=== PATIENT | male | born 1975 | race Caucasian/White ===

== ENCOUNTER 2022-01-24 07:29 | Emergency (ER) | payer OTHER, SELFPAY ==
[2022-01-24 07:29] VITALS: BP 129/86; PULSE 83; RESP 16; TEMP 36; O2SAT 98; BMI 25.8
--- NOTE | 2022-01-24 08:03 | EX.ED.UPPERE ---
HPI History of Present Illness HPI Narrative: Patient presents with injury to his left fifth finger that occurred today while at work. Patient states he smashed it between 2 heavy objects. Patient describes the pain as aching. Patient states nothing makes it better nothing makes it worse. Patient denies any paresthesias or weakness. Patient states his last tetanus was between 5 and 10 years ago. Patient denies any other injuries. Chief Complaint: Upper Extremity Injury Informant: patient Occured/Mechanism Mechanism/Context: Yes blunt trauma and Yes work related Onset/Context/Timing Onset: Today Context: Sudden Onset Timing: Continuous Quality of Pain: Aching Location: Left fifth finger Worsened by: Nothing Relieved by: Nothing Associated Symptoms Associated Symptoms: Negative for Parasthesia, Weakness and Loss of Funtion Narrative Tetanus Immunization: 5-10 years PFSH PFS Medical History no medical history no medical history Home Medications cephalexin 500 mg PO Q6 #40 capsule 01/24/22 [Rx Last Taken Unknown] Allergy/AdvReac Type Severity Reaction Status Date / Time No Known Allergies Allergy Verified 01/24/22 07:29 Surgical History no surgical history no surgical history Social History Smoking Status: Current every day smoker tobacco type: cigarettes ROS ROS ED Constitutional Constitutional ED: Denies chills or fever(s) Eyes Eyes: Denies blurry vision or change in vision ENT ENT ED: Denies rhinorrhea or sore throat Cardiovascular Cardiovascular: Denies chest pain or palpitations Respiratory/Chest Respiratory/Chest: Denies cough or dyspnea Gastrointestinal Gastrointestinal: Denies nausea or vomiting Genitourinary Genitourinary ED: Denies dysuria or hematuria Musculoskeletal Musculoskeletal: Denies back pain or neck pain Integumentary Denies abscess or rash Neurologic Neurologic: Denies headache(s) or weakness Allergic/Immunologic Allergic/Immunologic ED: Denies mouth swelling or urticaria EXAM Physical Exam Const Vital Signs: 01/24/22 07:29 Temperature 96.8 F L Temperature Source Temporal Pulse Rate 83 Respiratory Rate 16 Blood Pressure 129/86 H Blood Pressure Mean 100 Pulse Ox 98 Oxygen Delivery Method Room Air Positive well nourished and well developed General Appearance ED: well developed and NAD HEENT Reports moist mucous membranes Neck full ROM and supple Extremity Extremity Narrative: There is tenderness over the distal phalanx of the left fifth finger. There is a 2 cm full-thickness linear laceration over the palmar and ulnar aspects of the distal phalanx of the left fifth finger. There is good range of motion. There is no laxity appreciated. Sensation was intact to light touch in all digits. Strength is 5/5 in flexion and extension of the MP, PIP, and DIP joints. MDM MDM MDM Narrative Medical decision making narrative: X-rays of the left fifth finger were obtained. There are 3 views. On my interpretation, there is no acute fracture. There is no foreign body noted. There is no dislocation. Radiologist also interpreted the x-rays and agrees. The wound was cleaned and irrigated with copious amounts of normal saline. The wound was anesthetized with 1% plain lidocaine via digital block. The wound was closed with 2 simple interrupted #4 -0 nylon sutures under sterile technique. Patient tolerated the procedure well. Bacitracin dressing was applied. Patient was instructed to keep the wound clean and dry. Patient was given a dose of Keflex here. Patient was given a prescription for Keflex. Patient was instructed to follow-up in 7 days for wound recheck and suture removal. Patient understood and was agreeable with the plan. All questions were answered. Procedures Lacerations Left fifth finger: Depth: Sub Q Shape: Linear Prep: Sterile Conditions and Shure-Clens Laceration repair: Digital block, Irrigated, Lidocaine, Skin sutures and Wound explored Irrigated (ml): 60 Number of Sutures/Derick: 2 Suture Information: Vicryl, Simple and 4-0 Discharge Plan Triage Chief Complaint: Upper Extremity Injury ED Provider: Ky Dunn Dx/Rx/DC Orders Clinical Impression: Laceration of left little finger w/o foreign body w/o damage to nail Instructions: ED Laceration, Hand: All Closures Prescriptions: New cephalexin [cephalexin] 500 MG capsule 500 mg PO Q6 Qty: 40 RF: 0 Primary Care Provider: Care Physician,No Primary Referrals: Care Physician,No Primary [Primary Care Provider] - Clinic,NOW [NON-STAFF] - 7 Days for suture removal Disposition Disposition: Home, Self Care
--- NOTE | 2022-01-24 08:07 | RAD_ITS ---
STUDY: X-RAY - LEFT HAND, ATTENTION FIFTH FINGER REASON FOR EXAM: Male, 46 years old. Injury/Pain. TECHNIQUE: 3 view(s) of the finger were obtained. COMPARISON: None. FINDINGS: Normal metacarpal head. Normal metacarpophalangeal joint. Normal proximal phalanx. Normal middle phalanx. Normal distal phalanx. Normal proximal interphalangeal joint. Normal distal interphalangeal joint. Soft tissue swelling. RAD/Finger(s) Min 2 Views IMPRESSION: Soft tissue swelling. Electronically Signed: Michael Tolliver MD at 8:41 EST ,
[2022-01-24] MEDS: Diphth,Pertuss(Acell),Tet Vac 0.5 ML Vial IM (08:22)
== END 2022-01-24 10:14 | disposition home or self-care (01) ==
PROVIDERS: Emergency Provider Emergency Medicine; Visit Provider Emergency Medicine
DX: S61.217A Laceration without foreign body of left little finger without damage to nail, initial encounter (principal); Y99.0 Civilian activity done for income or pay; F17.210 Nicotine dependence, cigarettes, uncomplicated; W23.0XXA Caught, crushed, jammed, or pinched between moving objects, initial encounter; Z23 Encounter for immunization
CPT/HCPCS: 12001; 73140; 90471; 90715; 99283

== ENCOUNTER → 2022-09-29 | Outpatient (CLI) | payer BC, SELFPAY ==
--- NOTE | 2022-09-29 12:10 | RAD_ITS ---
STUDY: X-RAY - CERVICAL SPINE REASON FOR EXAM: Male, 47 years old. Cervical neck pain. Radiculopathy. TECHNIQUE: 3 view(s) of the cervical spine were obtained. COMPARISON: None FINDINGS: Normal anterior atlantoaxial articulation. Normal odontoid process. Mild exaggeration of the cervical lordosis. Normal vertebral bodies and endplates. Minimal disc space narrowing. There is no evidence of acute fracture or loss of vertebral axial height. There is maintenance of normal alignment. The soft tissue structures are unremarkable. RAD/Cerv Spine 2 or 3 Views IMPRESSION: Exaggerated cervical lordosis with mild degenerative change. Electronically Signed: Giovani Ortega DO at 17:14 EDT ,
--- NOTE | 2022-09-29 12:10 | RAD_ITS ---
STUDY: X-RAY - LUMBAR SPINE REASON FOR EXAM: Male, 47 years old. Lumbar radiculopathy. Pain extending down the left leg. TECHNIQUE: 3 view(s) of the lumbar spine were obtained. COMPARISON: None FINDINGS: Normal lumbar lordosis. There is no substantial scoliosis. There is a normal alignment of the vertebrae. Minimal endplate spondylosis and disc space narrowing at T12-L1. The remainder of the disc heights appear preserved. There is no evidence of acute fracture or loss of vertebral axial height. The soft tissue structures are unremarkable. RAD/Lumbar Spine 2 or 3 Views IMPRESSION: Disc degeneration at T12-L1. Electronically Signed: Giovani Ortega DO at 17:30 EDT ,
== END | disposition home or self-care (01) ==
LOC: RAD 12:10
PROVIDERS: Referring Provider Internal Medicine; Visit Provider Internal Medicine
DX: M54.16 Radiculopathy, lumbar region (principal); M54.50 Low back pain, unspecified
CPT/HCPCS: 72040; 72100

== ENCOUNTER → 2022-09-30 | Outpatient (CLI) | payer BC, SELFPAY ==
[2022-09-30 09:37] LABS: Absolute Lymphocyte Count 3.32 X10^3/uL (0.83-4.51); Absolute Neutrophil Count 4.9 X10^3/uL (2.0-7.7); Basophil# 0.08 X10^3/uL; Basophil% 0.9 % (0-1); Eosinophil# 0.24 X10^3/uL; Eosinophils% 2.6 % (0-5); Hematocrit 46.8 % (40-54); Hemoglobin 16.5 g/dL (13.0-16.5); Lymphocyte # 3.32 X10^3/ul (0.83-4.51); Lymphocyte % 35.9 % (19-41); Mean Corp Hgb Conc 35.3 g/dL (32-36); Mean Corpuscular Hgb 33.3 pg (27.0-32.0); Mean Corpuscular Volume 94.5 fL (80-94); Mean Platelet Vol. 11.6 fl (6.2-12.0); Monocyte# 0.69 X10^3/uL; Monocyte% 7.5 % (0-10); NRBC Flagged by Analyzer 0 % (0-5); Neutrophil # 4.89 X10^3/uL (2.7-7.7); Neutrophil % 52.7 % (47-70); Platelet Count 196 K/mm3 (150-450); Red Blood Count 4.95 M/mm3 (4.6-6.2); White Blood Count 9.3 K/mm3 (4.4-11.0)
[2022-09-30 10:18] LABS: Vitamin D,25 Hydroxy 27.6 ng/mL
[2022-09-30 10:23] LABS: Hemoglobin A1c 5.6 % (3.8-5.6)
[2022-09-30 10:35] LABS: ALB/GLOB Ratio 1.1 RATIO (0.9-2.4); AST(SGOT) 24 U/L (15-37); Alanine Aminotransfer ALT/SGPT 42 U/L (16-61); Albumin, Serum 3.9 g/dL (3.2-5.0); Alkaline Phosphatase 119 U/L (45-117); Anion Gap 10 (5-15); BUN 18 mg/dL (7-18); BUN/Creat Ratio 19.1 RATIO (10-20); Calcium,Total 9.3 mg/dL (8.5-10.1); Chloride 108 mmol/L (98-107); Cholesterol 174 mg/dL (200); Creatinine, Serum 0.94 mg/dL (0.70-1.30); EST Glomerular Filtration Rate 90 mL/min (>60); Est Glom Filt Rate - Afr Amer 109 mL/min (>60); Globulin 3.5 g/dL (2.2-4.2); Glucose 93 mg/dL (74-106); High Density Lipoprotein 39 mg/dL; PSA,Total - Annual Screen 1.59 ng/mL (0.00-4.00); Potassium 3.9 mmol/L (3.5-5.1); Protein, Total 7.4 g/dL (6.4-8.2); Sodium Level 142 mmol/L (136-145); Triglycerides 104 mg/dL; Very Low Density Lipoprotein 21 mg/dL (5-40)
== END | disposition home or self-care (01) ==
LOC: LAB 08:57
PROVIDERS: PCP Internal Medicine; Referring Provider Internal Medicine; Visit Provider Internal Medicine
DX: Z00.00 Encounter for general adult medical examination without abnormal findings (principal); Z13.220 Encounter for screening for lipoid disorders; Z13.1 Encounter for screening for diabetes mellitus; Z12.5 Encounter for screening for malignant neoplasm of prostate
CPT/HCPCS: 36415; 80053; 80061; 82306; 83036; 84153; 85025; G0103

== ENCOUNTER 2022-11-27 16:04 | Emergency (ER) | payer BC, SELFPAY ==
[2022-11-27 16:05] VITALS: BP 138/91; PULSE 93; RESP 14; TEMP 36.1; O2SAT 97; BMI 30.1
--- NOTE | 2022-11-27 18:40 | RAD_ITS ---
INDICATION: Cough EXAMINATION/TECHNIQUE: X-RAY - XR Chest 2 Views COMPARISON: None. FINDINGS: LINES/DEVICES: None. LUNGS: No consolidation, edema or effusion. No pneumothorax. MEDIASTINUM AND CARDIOVASCULAR STRUCTURES: Cardiac silhouette not enlarged. Central airways and mediastinal contour are unremarkable. BONES AND SOFT TISSUES: Unremarkable. RAD/Chest PA and Lateral IMPRESSION: No radiographic evidence of acute cardiopulmonary disease. Electronically Signed: Sarabjit Owens MD at 20:08 EST ,
--- NOTE | 2022-11-27 18:40 | EKG12_ITS ---
Test Reason : CP Blood Pressure : / mmHG Vent. Rate : 084 BPM Atrial Rate : 084 BPM P-R Int : 142 ms QRS Dur : 104 ms QT Int : 356 ms P-R-T Axes : 074 -44 011 degrees QTc Int : 420 ms Normal sinus rhythm Left axis deviation Abnormal ECG Confirmed by SÁNCHEZ ROSARIO, DAVID ([id number]), manager editorial SANDOR VILLARREAL ([id number]) on 11/29/2022 1:20:21 PM Referred By: OSITO Confirmed By:DAVID POZO MD
--- NOTE | 2022-11-27 18:44 | EDS_ITS ---
HPI History of Present Illness Chief Complaint: Chest Pain Informant: patient Onset/Context/Timing Onset: Weeks (1) Context: Gradual Onset Timing: Continuous Quality: Sharp Location: Substernal, lower chest, and back Worsened by: Nothing Relieved by: Nothing Narrative Narrative: Patient presents with cough and congestion that has been getting worse over the past week. Patient states it is gradually gotten worse. Thank you patient states that sometimes he gets lightheaded after coughing. Patient states he feels short of breath. Patient states he has not been able to produce any sputum with the cough. Patient states that he has pain over the substernal area and bilateral lower chest. Patient states the pain radiates into his back. Patient states the pain is sharp with coughing. Patient states the pain is constant. Patient states he thinks he either has bronchitis or pneumonia. [facility] Medical History Acute arthritis Lung abnormality Home Medications meloxicam 15 mg tablet 15 mg PO DAILY PRN Neck/back pain #30 tabs 10/10/22 [Rx Last Taken Unknown] Allergy/AdvReac Type Severity Reaction Status Date / Time No Known Allergies Allergy Verified 11/27/22 16:05 Family History Mother Asthma Arthritis Bleeding disorder blood clots Diabetes Kidney disease CVA (cerebral vascular accident) Father Arthritis Cancer Kidney disease Grandmother Myocardial infarction Other Severe allergy Social History adopted: No household members: spouse housing: house current occupational status: employed 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 Smoking Status: Current every day smoker tobacco type: cigarettes alcohol intake: current details: couple of beers every once in awhile substance use type: does not use what type of physical activity do you participate in: none seatbelt use: always ROS ROS ED Constitutional Constitutional ED: Denies chills or fever(s) Eyes Eyes: Denies blurry vision or change in vision ENT ENT ED: Denies rhinorrhea or sore throat Cardiovascular Cardiovascular: Reports chest pain; Denies palpitations Respiratory/Chest Respiratory/Chest: Reports cough and dyspnea Gastrointestinal Gastrointestinal: Denies abdominal pain, nausea or vomiting Genitourinary Genitourinary ED: Denies dysuria or hematuria Musculoskeletal Musculoskeletal: Reports back pain; Denies neck pain Integumentary Denies abscess or rash Neurologic Neurologic: Denies headache(s) or weakness Allergic/Immunologic Allergic/Immunologic ED: Denies mouth swelling or urticaria EXAM Physical Exam Const Vital Signs: 11/27/22 16:05 11/27/22 18:55 Temperature 97 F L Temperature Source Temporal Pulse Rate 93 88 Respiratory Rate 14 12 Respiratory Pattern Normal Blood Pressure 138/91 H Blood Pressure Mean 106 Pulse Ox 97 Oxygen Delivery Method Room Air Positive well nourished and well developed General Appearance ED: well developed HEENT normocephalic and atraumatic Eyes PERRL and EOMs intact bilaterally Neck supple and no JVD Chest Wall palpation of chest normal Resp normal respiratory effort and clear to auscultation bilaterally Effort and Inspection: Negative for respiratory distress Cardio regular rate and regular rhythm GI normal to inspection, nondistended, normoactive bowel sounds, soft to palpation, non-tender and non-distended Extremity normal to inspection General Extremety ED: Negative for edema or tenderness General Extremity: Negative for edema Neuro oriented x3, CN's II-XII intact bilaterally and no sensory deficits noted Sensorium / Orientation: awake and alert Motor Exam: strength 5/5 throughout Psych mental status grossly normal MDM MDM MDM Narrative Medical decision making narrative: Patient was given a DuoNeb aerosol here. EKG was obtained. On my interpretation, it shows normal sinus rhythm with a rate of 84. TN interval, QRS interval, and QTc intervals are within normal limits. There is left axis deviation at -44. There are no acute ST or T wave changes noted. CBC shows a mild leukocytosis of 15.9. Comprehensive metabolic profile was within normal limits. High-sensitivity troponin was normal. PA and lateral chest x-ray was obtained. There are 2 views. On my interpretation, lung rodriguez are clear. There is normal cardiac silhouette. Bony thorax is normal. There is no acute process noted. Radiologist also interpreted the x-ray and agrees. COVID-19 rapid antigen was obtained and was negative. Influenza A and influenza B rapid antigens were obtained and were negative. Patient was advised of his findings. Patient was advised that this is most likely a viral bronchitis. Patient was instructed to follow-up with his primary care physician in 5 to 7 days. Patient understood and was agreeable with the plan. All questions were answered. Lab Data Attestation: I reviewed the patient's lab results. Labs: Laboratory Results - last 24 hr 11/27/22 11/27/22 18:43 18:43 WBC 15.9 H RBC 5.06 Hgb 17.0 H Hct 47.1 MCV 93.1 MCH 33.6 H MCHC 36.1 H RDW Std Deviation 40.1 RDW Coeff of Concepcion 11.9 Plt Count 247 MPV 10.8 Immature Gran % (Auto) 0.600 Neut % (Auto) 64.4 Lymph % (Auto) 25.7 [place] % (Auto) 6.1 Eos % (Auto) 2.6 Baso % (Auto) 0.6 Absolute Neuts (auto) 10.2 H Absolute Lymphs (auto) 4.08 Nucleated RBC % 0 Sodium 139 Potassium 3.7 Chloride 108 H Carbon Dioxide 25.0 Anion Gap 6 BUN 15 Creatinine 0.97 Estim Creat Clear Calc 95.12 Est GFR (MDRD) Af Amer 105 Est GFR (MDRD) Non-Af 87 BUN/Creatinine Ratio 15.4 Glucose 106 Calcium 8.7 Total Bilirubin 0.40 AST 54 H ALT 81 H Alkaline Phosphatase 116 Troponin I High Sens 5 Total Protein 7.4 Albumin 3.7 Globulin 3.7 Albumin/Globulin Ratio 1.0 Radiography Chest X-Ray - ED: 2 View, Read by ED Physician, Read by Radiologist and No Acute Disease Diagnostic Testing: Clinical Impression(s) from Imaging Studies Chest X-Ray 11/27/22 18:40 IMPRESSION: No radiographic evidence of acute cardiopulmonary disease. Electronically Signed: Sarabjit Owens MD at 20:08 EST Reading Location ID and State: [facility] / [place] Tel , Service support , EKG Initial EKG: Attestation: I personally reviewed and interpreted this EKG as follows: Interpretation: Sinus Rhythm (84) and No Acute Injury Pattern Prior EKG tracings: not available for review Prior: No Prior Discharge Plan Triage Chief Complaint: Chest Pain ED Provider: Ky Dunn Dx/Rx/DC Orders Clinical Impression: Acute viral bronchitis, Tobacco use disorder Instructions: ED Bronchitis, No Antibiotic (Adult) Prescriptions: No Action meloxicam 15 mg tablet 15 mg PO DAILY PRN (Reason: Neck/back pain) Qty: 30 2RF Primary Care Provider: Alaina Joy Referrals: Alaina Joy MD [Primary Care Provider] - 5-7 Days Disposition Disposition: Home, Self Care
[2022-11-27] MEDS: Ipratropium/Albuterol Sulfate 3 ML AMPUL.NEB INHALATION (18:54)
[2022-11-27 18:55] VITALS: PULSE 88; RESP 12
[2022-11-27 18:59] LABS: Absolute Lymphocyte Count 4.08 X10^3/uL (0.83-4.51); Absolute Neutrophil Count 10.2 X10^3/uL (2.0-7.7); Basophil# 0.09 X10^3/uL; Basophil% 0.6 % (0-1); Eosinophil# 0.42 X10^3/uL; Eosinophils% 2.6 % (0-5); Hematocrit 47.1 % (40-54); Lymphocyte # 4.08 X10^3/ul (0.83-4.51); Lymphocyte % 25.7 % (19-41); Mean Corp Hgb Conc 36.1 g/dL (32-36); Mean Corpuscular Hgb 33.6 pg (27.0-32.0); Mean Corpuscular Volume 93.1 fL (80-94); Mean Platelet Vol. 10.8 fl (6.2-12.0); Monocyte# 0.97 X10^3/uL; Monocyte% 6.1 % (0-10); NRBC Flagged by Analyzer 0 % (0-5); Neutrophil # 10.22 X10^3/uL (2.7-7.7); Neutrophil % 64.4 % (47-70); Platelet Count 247 K/mm3 (150-450); RBC Distribution Width CV 11.9 % (11.6-14.6); RBC Distribution Width SD 40.1 fl (35.1-43.9); Red Blood Count 5.06 M/mm3 (4.6-6.2); White Blood Count 15.9 K/mm3 (4.4-11.0)
[2022-11-27 19:20] LABS: AST(SGOT) 54 U/L (15-37); Alanine Aminotransfer ALT/SGPT 81 U/L (16-61); Albumin, Serum 3.7 g/dL (3.2-5.0); Alkaline Phosphatase 116 U/L (45-117); Anion Gap 6 (5-15); BUN 15 mg/dL (7-18); BUN/Creat Ratio 15.4 RATIO (10-20); Calcium,Total 8.7 mg/dL (8.5-10.1); Chloride 108 mmol/L (98-107); Creatinine, Serum 0.97 mg/dL (0.70-1.30); EST Glomerular Filtration Rate 87 mL/min (>60); Est Glom Filt Rate - Afr Amer 105 mL/min (>60); Estimated Creatinine Clearance 95.12 ml/min; Globulin 3.7 g/dL (2.2-4.2); Glucose 106 mg/dL (74-106); Potassium 3.7 mmol/L (3.5-5.1); Protein, Total 7.4 g/dL (6.4-8.2); Sodium Level 139 mmol/L (136-145); Troponin-I HS 5 pg/mL (3.0-78.0)
== END 2022-11-27 21:17 | disposition home or self-care (01) ==
PROVIDERS: Emergency Provider Emergency Medicine; PCP Internal Medicine; Visit Provider Emergency Medicine
DX: J20.9 Acute bronchitis, unspecified (principal); F17.210 Nicotine dependence, cigarettes, uncomplicated
CPT/HCPCS: 71046; 80053; 84484; 85025; 87428; 93005; 94640; 99284; A4216

== ENCOUNTER 2022-11-30 10:04 | Emergency (ER) | payer BC, SELFPAY ==
[2022-11-30 10:17] VITALS: BP 112/74; PULSE 110; RESP 26; TEMP 37.2; O2SAT 95; BMI 29.4
--- NOTE | 2022-11-30 10:21 | EKG12_ITS ---
Test Reason : FEVER Blood Pressure : / mmHG Vent. Rate : 107 BPM Atrial Rate : 107 BPM P-R Int : 126 ms QRS Dur : 098 ms QT Int : 336 ms P-R-T Axes : 064 -20 028 degrees QTc Int : 448 ms Poor data quality, interpretation may be adversely affected Sinus tachycardia Otherwise normal ECG Confirmed by STEVE ROSARIO, BRENNA ([id number]), design editor SANDOR VILLARREAL ([id number]) on 12/02/2022 6:28:23 AM Referred By: Confirmed By:PRAVEEN WILSON MD
[2022-11-30 12:04] VITALS: BP 122/91; PULSE 98; RESP 19; TEMP 37.3; O2SAT 96
--- NOTE | 2022-11-30 12:35 | EX.ED.VIS.UR ---
HPI HPI - URI History of Present Illness Chief Complaint: Shortness of Breath Detail of Chief Complaint: URI symptoms for the last 2 weeks. Informant: patient Onset/Context/Timing Onset: Weeks Context: Gradual Onset Timing: Continuous Current Severity: Mild Maximum Severity: Mild Associated Symptoms Associated Symptoms: Positive for Productive Cough Narrative Narrative: 47-year-old male history of diabetes. States annually he gets a bronchitis. Was seen here on November 27 had a work-up which showed an elevated white count but negative chest x-ray negative COVID and negative influenza. He was treated as a viral syndrome. States his cough is productive of green to purulent sputum. He went to the urgent care today they referred him back to the emergency department. Prior similar symptoms: Yes Recent Illness/Hospitalization: No ROS ROS ED ROS Narrative Productive cough. Review of Systems ROS Unobtainable: Denies due to encephalopathy Constitutional Constitutional ED: Reports chills Eyes Eyes: Denies blurry vision ENT ENT ED: Denies ear pain Cardiovascular Cardiovascular: Denies chest pain Respiratory/Chest Respiratory/Chest: Reports cough Gastrointestinal Gastrointestinal: Denies abdominal pain Genitourinary Genitourinary ED: Denies dysuria or hematuria Musculoskeletal Musculoskeletal: Denies arthralgias Integumentary Denies abscess Neurologic Neurologic: Denies headache(s) Psychiatric Psychiatric: Denies anxiety Endocrine Endocrinology: Denies cold intolerance Hematologic/Lymphatic Hematologic/Lymphatic: Denies easy bleeding Allergic/Immunologic Allergic/Immunologic ED: Denies mouth swelling or tongue swelling PFSH [facility] Medical History Acute arthritis Lung abnormality Home Medications meloxicam 15 mg tablet 15 mg PO DAILY PRN Neck/back pain #30 tabs 10/10/22 [Rx Last Taken Unknown] azithromycin 250 mg tablet (Zithromax) 250 mg PO DAILY 4 days #4 tabs 11/30/22 [Rx Last Taken Unknown] Allergy/AdvReac Type Severity Reaction Status Date / Time No Known Allergies Allergy Verified 11/30/22 10:17 Family History Mother Asthma Arthritis Bleeding disorder blood clots Diabetes Kidney disease CVA (cerebral vascular accident) Father Arthritis Cancer Kidney disease Grandmother Myocardial infarction Other Severe allergy Social History adopted: No household members: spouse housing: house current occupational status: employed 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 Vital signs stable afebrile. Pulse ox is 95% on 2 L. He does not look septic or toxic. H EENT exam unremarkable. Moist with membranes. Neck nontender. No JVD. No meningismus. No lymphadenopathy. Lungs clear to auscultation bilaterally. Dry cough. Heart regular rhythm rate about 100 no murmur. Abdomen soft nontender normal bowel sounds no peritoneal signs. Chest wall nontender no crepitance. Moving all 4 extremities. Calves nontender without edema. Back exam normal. Neurologically is awake and alert with no focal motor deficits. Benign exam. Const Vital Signs: 11/30/22 10:17 11/30/22 12:04 11/30/22 12:04 Temperature 99 F 99.1 F Temperature Source Temporal Oral Pulse Rate 110 H 98 Respiratory Rate 26 H 19 H Respiratory Effort Short of Breath Respiratory Pattern Tachypnea Blood Pressure 112/74 122/91 H Blood Pressure Mean 86 101 Pulse Ox 95 96 Oxygen Delivery Method Nasal Cannula Nasal Cannula Nasal Cannula Oxygen Flow Rate (L/min) 2 2 2 Positive well nourished and well developed; Negative for obese, cachectic or contractures General Appearance ED: well developed and NAD; Negative for cachectic, contractures, cyanotic, diaphoretic or pallor Nutritional Appearance: Negative for cachectic or obese HEENT Reports moist mucous membranes; Denies dry mucous membranes normocephalic and atraumatic; Negative for scalp tenderness Face and Sinus: Negative for sinus tenderness Mouth ED: No dry mucous membranes Mouth: No dry mucous membranes Teeth and Gingiva: Negative for caries Throat: posterior oropharynx normal Eyes PERRL and EOMs intact bilaterally General Eye ED: Negative for pale conjunctiva or scleral icterus Neck no lymphadenopathy, supple, no meningeal signs and no JVD General: Negative for anterior neck swelling or lymphadenopathy Resp normal respiratory effort and clear to auscultation bilaterally Effort and Inspection: Negative for retractions Auscultation: Negative for rales, rhonchi or wheezes Cardio S1 normal heart sound, S2 normal heart sound and no murmurs Rate: regular rate Rhythm: regular rhythm GI non-tender, non-distended and no masses Inspection: Negative for abdominal distention Auscultation: normoactive bowel sounds Palpation: soft; Negative for tender or guarding Back/Spine no CVA tenderness and normal ROM General Back: Negative for CVA tenderness Cervical Spine: Negative for cervical spine tenderness Thoracic Spine / Upper Back: Negative for thoracic spinal tenderness Lumbar Spine / Lower Back: Negative for lumbar spinal tenderness Sacrum: Negative for tenderness Extremity normal to inspection and full ROM General Extremety ED: Negative for cyanosis or tenderness General Extremity: Negative for cyanosis Neuro oriented x3 and CN's II-XII intact bilaterally Sensorium / Orientation: alert, oriented to person, oriented to place and oriented to time; Negative for orientation impaired, lethargic or stuporous Motor Exam: strength 5/5 throughout Psych mental status grossly normal Appearance: Negative for other Attitude: No agitated Mood & Affect: Negative for depressed, anxious or tearful Skin General Skin Exam: Negative for jaundice or pallor Lesions: no lesions Rashes: no rashes Trauma: Negative for abrasion or laceration MDM MDM MDM Narrative Medical decision making narrative: 47-year-old male URI symptoms. He said is not for 2 weeks. He does have purulent sputum. I reviewed his work-up from November 27 it was basically unremarkable other than elevated white count. Chest x-ray was negative. He and I discussed and I offered him a repeat chest x-ray which he deferred. He will be started on Zithromax given his first dose in the ER and then for 4 more days starting tomorrow. Return if worse. Follow-up with not improving. Rhythm Strip Rhythm Strip: Sinus Tach Rate: 107 Ectopy: None EKG Initial EKG: Attestation: I personally reviewed and interpreted this EKG as follows: Interpretation: Sinus Rhythm, No Acute Injury Pattern and Sinus Tachycardia Comments: Sinus tachycardia rate of 107 no acute signs of ID or ischemia. EKG was done by nursing protocol he had chest discomfort with coughing. This is not a cardiac presentation. Discharge Plan Triage Chief Complaint: Shortness of Breath ED Provider: Julius Nickerson Dx/Rx/DC Orders Clinical Impression: Bronchitis Instructions: ED Bronchitis with Wheezing (Adult) Prescriptions: New azithromycin [Zithromax] 250 mg tablet 250 mg PO DAILY 4 Days Qty: 4 0RF Rx Instructions: start on day 2 of therapy No Action meloxicam 15 mg tablet 15 mg PO DAILY PRN (Reason: Neck/back pain) Qty: 30 2RF Primary Care Provider: Alaina Joy Referrals: Alaina Joy MD [Primary Care Provider] - 3-5 Days if not improving Activity Restrictions/Additional Instructions: Plenty of fluids and rest. Motrin and Tylenol for fever and body aches. Zithromax 1 pill a day starting tomorrow after lunch for the next 4 days. Return if feeling worse. Follow-up with your doctor if not improving. 3 days from now you should start feeling a lot better. Disposition Disposition: Home, Self Care
[2022-11-30] MEDS: Azithromycin 250 MG Tablet 500 MG PO (12:54)
[2022-11-30 12:56] VITALS: BP 124/84; PULSE 98; RESP 20; O2SAT 96
== END 2022-11-30 13:00 | disposition home or self-care (01) ==
PROVIDERS: Emergency Provider Emergency Medicine; PCP Internal Medicine; Visit Provider Emergency Medicine
DX: J40 Bronchitis, not specified as acute or chronic (principal); E11.9 Type 2 diabetes mellitus without complications; F17.210 Nicotine dependence, cigarettes, uncomplicated; R06.02 Shortness of breath
CPT/HCPCS: 93005; 99284; A4216

== ENCOUNTER → 2023-12-22 | Outpatient (CLI) | payer BC, SELFPAY ==
[2023-12-22 12:20] LABS: Absolute Lymphocyte Count 2.27 X10^3/uL (0.83-4.51); Absolute Neutrophil Count 3.2 X10^3/uL (2.0-7.7); Basophil# 0.09 X10^3/uL; Basophil% 1.3 % (0-1); Eosinophil# 0.38 X10^3/uL; Eosinophils% 5.6 % (0-5); Hematocrit 49.5 % (40-54); Hemoglobin 16.6 g/dL (13.0-16.5); Lymphocyte # 2.27 X10^3/ul (0.83-4.51); Lymphocyte % 33.5 % (19-41); Mean Corp Hgb Conc 33.5 g/dL (32-36); Mean Corpuscular Hgb 31.8 pg (27.0-32.0); Mean Corpuscular Volume 94.8 fL (80-94); Mean Platelet Vol. 10.8 fl (6.2-12.0); Monocyte# 0.81 X10^3/uL; NRBC Flagged by Analyzer 0 % (0-5); Neutrophil # 3.19 X10^3/uL (2.7-7.7); Neutrophil % 47.2 % (47-70); Platelet Count 214 K/mm3 (150-450); RBC Distribution Width CV 12.9 % (11.6-14.6); RBC Distribution Width SD 44.8 fl (35.1-43.9); Red Blood Count 5.22 M/mm3 (4.6-6.2); White Blood Count 6.8 K/mm3 (4.4-11.0)
[2023-12-22 13:28] LABS: Hepatitis C Antibody Non-Reactive (Nonreactive)
[2023-12-22 13:30] LABS: ALB/GLOB Ratio 1.1 RATIO (0.9-2.4); AST(SGOT) 21 U/L (15-37); Alanine Aminotransfer ALT/SGPT 45 U/L (16-61); Albumin, Serum 3.8 g/dL (3.2-5.0); Alkaline Phosphatase 113 U/L (45-117); Anion Gap 4 (5-15); BUN 10 mg/dL (7-18); BUN/Creat Ratio 10.1 RATIO (10-20); Calcium,Total 9.1 mg/dL (8.5-10.1); Chloride 108 mmol/L (98-107); Cholesterol 162 mg/dL (200); Creatinine, Serum 0.99 mg/dL (0.70-1.30); EST Glomerular Filtration Rate 85 mL/min (>60); Est Glom Filt Rate - Afr Amer 103 mL/min (>60); Globulin 3.5 g/dL (2.2-4.2); Glucose 99 mg/dL (74-106); High Density Lipoprotein 35 mg/dL; Potassium 3.7 mmol/L (3.5-5.1); Protein, Total 7.3 g/dL (6.4-8.2); Sodium Level 137 mmol/L (136-145); Thyroid Stim Hormone (TSH) 1.73 uIU/mL (0.358-3.74); Triglycerides 214 mg/dL; Very Low Density Lipoprotein 43 mg/dL (5-40)
== END | disposition home or self-care (01) ==
LOC: POLAB3 10:55
PROVIDERS: PCP Internal Medicine; Visit Provider Family Medicine Geriatric Medicine
DX: Z00.00 Encounter for general adult medical examination without abnormal findings (principal)
CPT/HCPCS: 36415; 80053; 80061; 84443; 85025; 86803

== ENCOUNTER → 2023-12-28 | Outpatient (CLI) | payer BC, SELFPAY ==
--- NOTE | 2023-12-28 11:26 | RAD_ITS ---
STUDY: X-RAY CHEST REASON FOR EXAM: Male, 48 years old. CONGESTION OF RESP TRACT/WHEEZING TECHNIQUE: Frontal and lateral views of the chest. COMPARISON: 11/27/2022. FINDINGS: There is hyperinflation of the lungs consistent with chronic obstructive lung disease (COPD). Possible minimal atelectasis or infiltrate in the lower left lung, versus mild scarring. No effusions. There is no demonstrated pleural abnormality. Normal size heart. Normal mediastinum and esther. Normal visualized pulmonary arteries. Normal visualized aortic arch and descending thoracic aorta. Normal visualized thoracic spine. Normal visualized ribs, clavicles, and shoulders. There is no demonstrated abnormality of the visualized soft tissue structures of the upper abdomen. RAD/Chest PA and Lateral IMPRESSION: (COPD). Possible minimal atelectasis or infiltrate in the lower left lung, versus mild scarring. Electronically Signed: Tarun Marques MD at 16:52 EST ,
[2023-12-28 12:40] LABS: Absolute Lymphocyte Count 4.44 X10^3/uL (0.83-4.51); Absolute Neutrophil Count 1.7 X10^3/uL (2.0-7.7); Basophil# 0.09 X10^3/uL; Basophil% 1.3 % (0-1); Eosinophil# 0.16 X10^3/uL; Eosinophils% 2.3 % (0-5); Hematocrit 47.4 % (40-54); Hemoglobin 15.9 g/dL (13.0-16.5); Lymphocyte # 4.44 X10^3/ul (0.83-4.51); Lymphocyte % 63.8 % (19-41); Mean Corp Hgb Conc 33.5 g/dL (32-36); Mean Corpuscular Hgb 32.1 pg (27.0-32.0); Mean Corpuscular Volume 95.6 fL (80-94); Mean Platelet Vol. 11.1 fl (6.2-12.0); Monocyte# 0.58 X10^3/uL; Monocyte% 8.3 % (0-10); NRBC Flagged by Analyzer 0 % (0-5); Neutrophil # 1.66 X10^3/uL (2.7-7.7); Neutrophil % 23.9 % (47-70); Platelet Count 165 K/mm3 (150-450); RBC Distribution Width CV 12.8 % (11.6-14.6); RBC Distribution Width SD 45.8 fl (35.1-43.9); Red Blood Count 4.96 M/mm3 (4.6-6.2)
[2023-12-28 13:08] LABS: Anion Gap 2 (5-15); BUN 22 mg/dL (7-18); BUN/Creat Ratio 24.9 RATIO (10-20); Calcium,Total 8.6 mg/dL (8.5-10.1); Chloride 108 mmol/L (98-107); Creatinine, Serum 0.88 mg/dL (0.70-1.30); EST Glomerular Filtration Rate 97 mL/min (>60); Est Glom Filt Rate - Afr Amer 117 mL/min (>60); Glucose 103 mg/dL (74-106); Potassium 3.4 mmol/L (3.5-5.1); Sodium Level 137 mmol/L (136-145)
--- OUTSIDE RECORDS SUMMARY | 2023-12-28 13:24 | XMS RPT_ITS | CCD ---
Author Name Unknown Address [address] [place] [address] [address] [place] [address] Organization [facility] Care Team Providers Care Pipe Fitter Supervisor Maintenance Name Role Phone Rufino ROSARIO, Alaina Heaton Primary Care Provider Medications Current Medications Medication Drug Class(es) Dates Sig (Normalized) Sig (Original) amoxicillin 875 mg / clavulanate 125 mg oral tablet (1 source) Penicillin-class Antibacterial Start: 01-06-2023 End: 01-13-2023 take 1 tablet by mouth twice daily amoxicillin-clavulan ic acid (AUGMENTIN) 875-125 mg per tablet Indications: Rhinosinusitis Take 1 tablet by mouth twice daily for 7 days. 14 tablet 0 01/06/2023 01/13/2023 Active Completed/Discontinued Medications Medication Drug Class(es) Dates Sig (Normalized) Sig (Original) [id number] 200 actuat albuterol 0.09 mg/actuat metered dose inhaler (1 source) beta2-Adrenergic Agonist Start: 01-06-2023 take 2 puff(s) by inhalation every six hours as needed for wheezing albuterol HFA (PROVENTIL HFA, VENTOLIN HFA) 90 mcg/actuation inhaler Indications: Rhinosinusitis Inhale 2 Puffs as instructed every 6 hours as needed for wheezing/shortness of breath. 1 Each 0 01/06/2023 Active Problems Problem Classification Problem Date Documented Da te Episodic/Chronic Other lower respiratory disease (1 source) Cough; Translations: [Acute cough] Episodic Other upper respiratory disease (1 source) Chronic rhinitis; Translations: [Unspecified sinusitis (chronic)] Chronic Other upper respiratory disease (1 source) Pain in throat; Translations: [Pain in throat] Episodic Results Test Name Value Interpretation Reference Range Facil ity Vital Signs Date Time Vital Sign Value Performing Clinician Faci lity 01-06-2023 09:08-0500 Body temperature 98.49 [degF] Stefania David APRN.NURSE'S ASSISTANT Work Phone: [facility] 01-06-2023 09:08-0500 Body weight 94.71 kg Stefania David APRN.NURSE'S ASSISTANT Work Phone: [facility] 01-06-2023 09:08-0500 Diastolic blood pressure 74 mm[Hg] Stefania David APRN.NURSE'S ASSISTANT Work Phone: [facility] 01-06-2023 09:08-0500 Heart rate 94 /min Stefania David APRN.NURSE'S ASSISTANT Work Phone: [facility] 01-06-2023 09:08-0500 Respiratory rate 18 /min Stefania David APRN.NURSE'S ASSISTANT Work Phone: [facility] 01-06-2023 09:08-0500 SaO2% (BldA) [Mass fraction] 96 % Stefania David APRN.NURSE'S ASSISTANT Work Phone: [facility] 01-06-2023 09:08-0500 Systolic blood pressure 118 mm[Hg] Stefania David APRN.NURSE'S ASSISTANT Work Phone: [facility] Encounters Encounter Date Encounter Type Care Provider Facility Start: 01-06-2023 End: 01-06-2023 Patient encounter procedure Stefania David APRN.CNP Work Phone: [facility] Procedures Date Procedure Procedure Detail Performing Clinician Start: 01-06-2023 STREP A MOLECULAR (POC) Stefania David APRN.NURSE'S ASSISTANT Work Phone: Plan of Treatment Date Care Activity Detail Author Start: 11-27-2022 DEPRESSION ASSESSMENT DEPRESSION ASS ESSMENT [facility] Start: 07-28-2022 Influenza vaccination INFLUENZA (#1) [facility] Start: 08-06-2021 COVID-19 VACCINE (3 - Booster for Pfizer series) COVID-19 VACCINE (3 - Booster for Pfizer series) [facility] Start: 2018 COLOGUARD (FIT-DNA) COLOGUARD (FIT-D NA) [facility] Start: 2018 Colonoscopy COLONOSCOPY [facility] Start: 2018 COLORECTAL CANCER SCREENING COLORECTAL CANCER SCREENING [facility] Start: [address] COLONOGRAPHY [facility] Start: 2018 DIABETES SCREEN DIABETES SCREEN [facility] Start: 2018 FECAL OCCULT BLOOD FECAL OCCULT BLOO D [facility] Start: 2018 SIGMOIDOSCOPY SIGMOIDOSCOPY [facility] Start: 2008 LIPID SCREEN LIPID SCREEN [facility] Start: 1992 Urine microalbumin profile DTAP,TDAP ,TD (1 - Tdap) [facility] Start: 1991 HEPATITIS C SCREENING HEPATITIS C SC REENING [facility] Start: 1991 HIV SCREENING HIV SCREENING [facility] Start: 1979 PNEUMOCOCCAL (1 - PCV) PNEUMOCOCCAL (1 - PCV) [facility] Start: 1973 HEPATITIS B (1 of 3 - 3-dose series) HEPATITIS B (1 of 3 - 3-dose series) [facility] Payers Date Payer Category Payer Unknown RAFAEL APARICIO PPO [id number] 2023-Present [phone] [id number] [place] [address] PPO [id number] Social History Date Type Detail Facility [facility]: [facility] Work Phone: Start: 08-20-2021 Tobacco use and exposure Smokeless tobacco non-user [facility] Work Phone: Start: 01-06-2023 Alcohol intake Lifetime non-d romel (finding) [facility] Start: 1973 Sex Assigned At Not on file [facility] Clinical Notes 08-20-2021 to 01-06-2023 Stefania David APRN.NURSE'S ASSISTANT - 01/06/2023 9:15 AM EST Note Date & Type Note Facility 01-06-2023 History of Present illness Narrative CC: Patient presents with: Headache: Pt reported throat pain, neck swelling, nasal congestion, ATB 12/19/22 PCP. HPI: Anibal Chatterjee is a 47 year old male who presents to the office with complaint of head congestion, cough, nonproductive, sore throat, and sinus symptoms since November 17. Symptoms are staying the same. Associated symptoms includes nasal congestion, facial pain/pressure, and post nasal drip. Denies fever, nausea, vomiting , and diarrhea. Treatments tried include nothing so far. with no relief of symptoms. Sick contacts: unknown. History of asthma, frequent episodes of bronchitis, chronic bronchitis, bronchiectasis or COPD: No Smoker: No Seasonal/environmental allergies: No The ROS is otherwise negative. The patient's pmh, medications, allergies, and past visits are reviewed. PHYSICAL EXAM: BP 118/74 Pulse 94 Temp 36.9 C (98.5 F) (Tympanic) Resp 18 Wt 94.7 kg (208 lb 12.8 oz) SpO2 96% General appearance: alert, cooperative, pleasant, in no acute distress Head: Normocephalic Eyes: EOM's intact, conjunctiva pink and moist, no icterus, sclera white, non-injected Ears: Right ear: External ear/canal- Normal, TM - clear with good landmarks. Left ear: External ear/canal- Normal, TM - clear with good landmarks Oropharynx:moist without lesions, No erythema, exudates or tonsillar hypertrophy. Heart: Negative. RRR without obvious murmur, gallop, or rubs. No ectopy. Lungs: clear to auscultation, without rales or wheeze, good air exchange PAST MEDICAL HISTORY Diagnosis Date NEGATIVE MEDICAL HISTORY PAST SURGICAL HISTORY Procedure Laterality Date CHEST TUBE Left ~1995 ALLERGIES Patient has no known allergies. MEDICATIONS meloxicam (MOBIC) 15 mg tablet take 1 tablet by mouth once daily if needed for NECK OR BACK PAIN azithromycin (ZITHROMAX) 250 mg tablet Take by mouth as directed. TAKE 2 TABLETS BY MOUTH TODAY, THEN TAKE 1 TABLET DAILY FOR 4 DAYS (Patient not taking: Reported on 01/06/2023) benzonatate (TESSALON PERLE) 100 mg capsule take 1 capsule by mouth three times a day if needed for cough (Patient not taking: Reported on 01/06/2023) doxycycline (VIBRA-TABS) 100 mg tablet Take by mouth. (Patient not taking: Reported on 01/06/2023) No family history on file. Social History Tobacco Use Smoking status: Every Day Smokeless tobacco: Never Substance Use Topics Alcohol use: Never Drug use: Never ASSESSMENT/PLAN: 1. Throat pain - ICD9: 784.1, ICD10: R07.0 (primary diagnosis) - STREP A MOLECULAR (POC) - negative 2. Acute cough - ICD9: 786.2, ICD10: R05.1 - XR CHEST 2V FRONTAL/LAT * * * * Physician Interpretation * * * * EXAMINATION: CHEST RADIOGRAPH (2 VIEW FRONTAL & LATERAL) CLINICAL HISTORY: Acute cough MQ: [id number] EXAM DATE/TIME: 01/06/2023 9:31 AM COMPARISON: Chest x-ray on 11/01/2020 is not available for comparison. RESULT: Lines, tubes, and devices: None. Lungs and pleura: No consolidation. No lung mass. No pleural effusion. No pneumothorax. Cardiomediastinal silhouette: Normal cardiomediastinal silhouette. Bones and soft tissues: There are mild degenerative changes in the spine. A few tiny punctate metal materials overlying the left upper chest. IMPRESSION IMPRESSION: No acute radiographic abnormality. Clothes Wringer: GEORGE Transcribe Date/Time: Jan 06 2023 9:34A Dictated by : VLAD TRIPP MD Augmentin bid for 7 days, Flonase daily, albuterol PRN. Educated to decrease smoking as well. Prescription instructions reviewed with patient as applicable. Potential red flag symptoms discussed with the patient. Reviewed appropriate action plan to take if red flag symptoms occur. Patient was also educated that if symptoms are not any better after this round of treatment he needs to go to his PCP for further testing. Patient agreeable to treatment plan. Stefania David APRN.JERI documented in this encounter [facility] 09-03-2021 Note . MICRO - Microbiology PROCEDURE: Blood Culture (bacterial) [*1] SOURCE: Blood BODY SITE: COLLECTED DATE/TIME: 08/27/2021 03:20 EDT RECEIVED DATE/TIME: 08/29/2021 18:51 EDT START DATE/TIME: 08/29/2021 18:51 EDT FREE TEXT SOURCE: FINAL REPORTS Final Report [] Verified Date/Time/Personnel: 09/03/2021 18:59 EDT Blood Culture: No Growth at 5 days. PRELIMINARY REPORTS Preliminary Report [] Verified Date/Time/Personnel: 08/29/2021 19:59 EDT Culture has been received in lab and is no growth to date. Routine cultures are held for 5 days. Performing Locations *1: This test was performed at: [facility], [address] [place] [address], [address] [place] [address] ([place]) documented in this encounter [facility] Summary Purpose Family History No Family History Records FoundNo Family History Records FoundNo Family History Records FoundNo Family History Records Found Advance Directives No Advanced Directives Records FoundNo Advanced Directives Records FoundNo Advanced Directives Records FoundNo Advanced Directives Records Found Additional Source Comments (unrecognized sect ion and content) No Status Records FoundNo Status Records FoundNo Status Records FoundNo Status Records Found INFORMATION SOURCE (unrecogn ized section and content) DATE CREATED AUTHOR AUTHOR'S ORGANIZ ATION 08/29/2021 [facility] ([place]) DATE CREATED AUTHOR AUTHOR'S ORGANIZ ATION 09/04/2021 [facility] ([place]) DATE CREATED AUTHOR AUTHOR'S ORGANIZ ATION 01/01/2022 [facility] Source Comments (unrecognize d section and content) In the event this informatio n is protected by the Federal Confidentiality of Alcohol and Drug Abuse Patient Records regulations: The Federal rules restrict any use of the information to criminally investigate or prosecute any alcohol or drug abuse patient.[facility] Reason for Visit (unrecogniz ed section and content) Care Teams (unrecognized sec tion and content) FOR RECORDS PERTAINING TO PATIENTS WHO ARE OR HAVE BEEN ENROLLED IN A CHEMICAL DEPENDENCY/SUBSTANCEABUSE PROGRAM, SOME INFORMATION MAY BE OMITTED. This clinical summary was aggregated from multiple sources. Caution should be exercised in using it in the provision of clinical care. This summary normalizes information from multiple sources, and as a consequence, information in this document may materially change the coding, format and clinical context of patient data. In addition, data may be omitted in some cases. CLINICAL DECISIONS SHOULD BE BASED ON THE PRIMARY CLINICAL RECORDS. [facility]. provides no warranty or guarantee of the accuracy or completeness of information in this document.
== END | disposition home or self-care (01) ==
PROVIDERS: PCP Family Medicine Geriatric Medicine; Referring Provider Family Medicine Geriatric Medicine; Visit Provider Family Medicine Geriatric Medicine
DX: J32.9 Chronic sinusitis, unspecified (principal); J98.8 Other specified respiratory disorders; R06.2 Wheezing
CPT/HCPCS: 36415; 71046; 80048; 85025; 87449

== ENCOUNTER → 2023-12-29 | Outpatient (CLI) | payer BC, SELFPAY | END | disposition home or self-care (01) | LOC: PSN 08:11 | PROVIDERS: PCP Family Medicine Geriatric Medicine; Referring Provider Family Medicine Geriatric Medicine; Visit Provider Family Medicine Geriatric Medicine | DX: R68.83 Chills (without fever) (principal) | CPT/HCPCS: 87631 ==

== ENCOUNTER → 2024-06-24 | Outpatient (CLI) | payer BC, SELFPAY ==
[2024-06-24 16:39] LABS: Absolute Lymphocyte Count 3.53 X10^3/uL (0.83-4.51); Absolute Neutrophil Count 2.9 X10^3/uL (2.0-7.7); Basophil% 1.3 % (0-1); Eosinophil# 0.32 X10^3/uL; Eosinophils% 4.3 % (0-5); Hematocrit 44.9 % (40-54); Hemoglobin 15.6 g/dL (13.0-16.5); Lymphocyte # 3.53 X10^3/ul (0.83-4.51); Lymphocyte % 46.9 % (19-41); Mean Corp Hgb Conc 34.7 g/dL (32-36); Mean Corpuscular Hgb 32.4 pg (27.0-32.0); Mean Corpuscular Volume 93.3 fL (80-94); Monocyte# 0.66 X10^3/uL; Monocyte% 8.8 % (0-10); NRBC Flagged by Analyzer 0 % (0-5); Neutrophil # 2.88 X10^3/uL (2.7-7.7); Neutrophil % 38.3 % (47-70); Platelet Count 216 K/mm3 (150-450); RBC Distribution Width CV 11.9 % (11.6-14.6); RBC Distribution Width SD 41.1 fl (35.1-43.9); Red Blood Count 4.81 M/mm3 (4.6-6.2); White Blood Count 7.5 K/mm3 (4.4-11.0)
[2024-06-24 17:17] LABS: ALB/GLOB Ratio 1.2 RATIO (0.9-2.4); AST(SGOT) 23 U/L (15-37); Alanine Aminotransfer ALT/SGPT 33 U/L (16-61); Albumin, Serum 3.8 g/dL (3.2-5.0); Alkaline Phosphatase 94 U/L (45-117); Anion Gap 1 (5-15); BUN 16 mg/dL (7-18); BUN/Creat Ratio 15.1 RATIO (10-20); Calcium,Total 8.7 mg/dL (8.5-10.1); Chloride 108 mmol/L (98-107); Creatinine, Serum 1.06 mg/dL (0.70-1.30); EST Glomerular Filtration Rate 78 mL/min (>60); Est Glom Filt Rate - Afr Amer 95 mL/min (>60); Globulin 3.1 g/dL (2.2-4.2); Glucose 93 mg/dL (74-106); Potassium 4.1 mmol/L (3.5-5.1); Protein, Total 6.9 g/dL (6.4-8.2); Sodium Level 138 mmol/L (136-145); Thyroid Stim Hormone (TSH) 0.74 uIU/mL (0.358-3.74)
== END | disposition home or self-care (01) ==
LOC: POLAB3 16:08
PROVIDERS: PCP Family Medicine Geriatric Medicine; Visit Provider Family Medicine Geriatric Medicine
DX: R53.83 Other fatigue (principal)
CPT/HCPCS: 36415; 80053; 84443; 85025

== ENCOUNTER → 2024-06-27 | Outpatient (CLI) | payer BC, SELFPAY ==
--- NOTE | 2024-06-27 13:50 | RAD_ITS ---
INDICATION: SPONDYLOSIS EXAMINATION/TECHNIQUE: X-RAY - XR Spine Cervical 4 or 5 Views COMPARISON: Prior study dated: 09/29/2022 FINDINGS: VERTEBRAE: Preserved vertebral body height. No fracture. Minimal retrolisthesis of C5 over C6 and C6 over C7. Preservation of the normal cervical lordosis. No significant facet arthropathy. DISCS: Mild disc space narrowing of C3-C4 and C5-C6. Small posterior lateral degenerative spurs at the level of C5-C6. NECK SOFT TISSUES: No prevertebral soft tissue widening. LUNG APICES: Clear. RAD/Cerv Spine 4 or 5 Views IMPRESSION: Mild degenerative changes of the cervical spine.. Electronically Signed: Roberto Art MD at 10:17 EDT ,
--- NOTE | 2024-06-27 13:50 | RAD_ITS ---
INDICATION: SPONDYLOSIS EXAMINATION/TECHNIQUE: X-RAY - XR Spine Lumbar Min 4 Views COMPARISON: Prior study dated: 09/29/2022 FINDINGS: VERTEBRAE: Preserved vertebral body height. No fracture. Mild grade 1 anterolisthesis of L4 over L5. Preservation of the normal lumbar lordosis. Minimal dextroscoliosis. DISCS: Narrowing of L4-L5 disc space. INCLUDED ABDOMEN: Included bowel gas pattern is non-obstructive. RAD/L/S Spine Min 4 Views IMPRESSION: Narrowing of L4-L5 disc space with grade 1 anterolisthesis of L4 over L5. Electronically Signed: Roberto Art MD at 10:19 EDT ,
== END | disposition home or self-care (01) ==
PROVIDERS: PCP Family Medicine Geriatric Medicine; Referring Provider Anesthesiology; Visit Provider Anesthesiology
DX: M47.816 Spondylosis without myelopathy or radiculopathy, lumbar region (principal); M47.812 Spondylosis without myelopathy or radiculopathy, cervical region
CPT/HCPCS: 72050; 72110

== ENCOUNTER → 2024-08-20 | Outpatient (CLI) | payer BC, SELFPAY | END | disposition home or self-care (01) | LOC: POLAB3 11:21 | PROVIDERS: PCP Family Medicine Geriatric Medicine; Visit Provider Family Medicine Geriatric Medicine | DX: R68.83 Chills (without fever) (principal) | CPT/HCPCS: 87631 ==

== ENCOUNTER → 2024-12-23 | Outpatient (CLI) | payer BC, SELFPAY ==
[2024-12-23 17:24] LABS: Absolute Lymphocyte Count 3.51 X10^3/uL (0.83-4.51); Absolute Neutrophil Count 3.5 X10^3/uL (2.0-7.7); Basophil# 0.09 X10^3/uL; Basophil% 1.1 % (0-1); Eosinophil# 0.42 X10^3/uL; Eosinophils% 5.1 % (0-5); Hematocrit 45.7 % (40-54); Hemoglobin 16.1 g/dL (13.0-16.5); Lymphocyte # 3.51 X10^3/ul (0.83-4.51); Mean Corp Hgb Conc 35.2 g/dL (32-36); Mean Corpuscular Hgb 33.1 pg (27.0-32.0); Mean Corpuscular Volume 93.8 fL (80-94); Mean Platelet Vol. 10.9 fl (6.2-12.0); Monocyte# 0.57 X10^3/uL; NRBC Flagged by Analyzer 0 % (0-5); Neutrophil # 3.54 X10^3/uL (2.7-7.7); Neutrophil % 43.4 % (47-70); Platelet Count 213 K/mm3 (150-450); RBC Distribution Width CV 11.9 % (11.6-14.6); RBC Distribution Width SD 41.4 fl (35.1-43.9); Red Blood Count 4.87 M/mm3 (4.6-6.2); White Blood Count 8.2 K/mm3 (4.4-11.0)
[2024-12-23 18:29] LABS: AST(SGOT) 29 U/L (15-37); Alanine Aminotransfer ALT/SGPT 43 U/L (16-61); Albumin, Serum 3.8 g/dL (3.2-5.0); Alkaline Phosphatase 107 U/L (45-117); Anion Gap 5 (5-15); BUN 13 mg/dL (7-18); BUN/Creat Ratio 15.8 RATIO (10-20); Calcium,Total 9.5 mg/dL (8.5-10.1); Chloride 111 mmol/L (98-107); Creatinine, Serum 0.82 mg/dL (0.70-1.30); EST Glomerular Filtration Rate 104 mL/min (>60); Est Glom Filt Rate - Afr Amer 126 mL/min (>60); Globulin 3.7 g/dL (2.2-4.2); Glucose 95 mg/dL (74-106); Protein, Total 7.5 g/dL (6.4-8.2); Sodium Level 139 mmol/L (136-145)
== END | disposition home or self-care (01) ==
PROVIDERS: PCP Family Medicine Geriatric Medicine; Referring Provider Family Medicine Geriatric Medicine; Visit Provider Family Medicine Geriatric Medicine
DX: R68.83 Chills (without fever) (principal); I10 Essential (primary) hypertension
CPT/HCPCS: 36415; 80053; 84443; 85025; 87631

== ENCOUNTER → 2024-12-31 | Outpatient (CLI) | payer BC, SELFPAY ==
--- NOTE | 2024-12-31 15:45 | RAD_ITS ---
PROCEDURE: CHEST PA AND LATERAL REASON FOR EXAM: Acute bronchitis. TECHNIQUE: Frontal view of the chest. COMPARISON: 12/28/2023. FINDINGS: The cardiac and mediastinal contours are normal. The lungs are clear. RAD/Chest PA and Lateral IMPRESSION: NEGATIVE SINGLE VIEW OF THE CHEST. Reading Location: [id number]
== END | disposition home or self-care (01) ==
LOC: RAD.FUTURE 15:44 → RAD 15:46
PROVIDERS: PCP Family Medicine Geriatric Medicine; Referring Provider Family Medicine Geriatric Medicine; Visit Provider Family Medicine Geriatric Medicine
DX: J20.9 Acute bronchitis, unspecified (principal)
CPT/HCPCS: 71046

== ENCOUNTER → 2025-05-21 | Outpatient (CLI) | payer BC, SELFPAY ==
--- NOTE | 2025-05-21 11:45 | RAD_ITS ---
PROCEDURE: HIP, UNI W/ PELVIS 2-3 VIEWS 05/21/2025 REASON FOR EXAM: PAIN TECHNIQUE: HIP, UNI W/ PELVIS 2-3 VIEWS COMPARISON: None. FINDINGS: There is a non-specific bowel gas pattern. Normal visualized soft tissue structures. Normal visualized sacrum, sacroiliac joints and bilateral iliac wings. Normal visualized bilateral superior and inferior pubic rami. Normal ischial tuberosities. Normal pubic symphysis. Normal visualized right femoral head. Normal right acetabulum. Normal right hip joint. Normal visualized left femoral head. Normal left acetabulum. Normal left hip joint. RAD/HIP, UNI W/ Pelvis 2-3 Views IMPRESSION: No evidence for acute abnormality. [facility]
--- NOTE | 2025-05-21 11:52 | RAD_ITS ---
PROCEDURE: L/S SPINE MIN 4 VIEWS 05/21/2025 REASON FOR EXAM: LOW BACK PAIN TECHNIQUE: L/S SPINE MIN 4 VIEWS COMPARISON: 06/27/2024. FINDINGS: Grade 1 anterolisthesis of L4 on L5 measuring 4.7 mm. No evidence of instability on flexion/extension images. There are diffuse spondylotic changes. Findings are demonstrated to by diffuse disc space narrowing, osteophyte formation and degenerative endplate sclerosis. There is diffuse facet joint arthropathy with secondary bilateral neural foramina narrowing. No fracture or dislocation is seen. No aggressive lytic or blastic bony lesion is noted. Mildly exaggerated lumbar lordosis. RAD/L/S Spine Min 4 Views IMPRESSION: Grade 1 anterolisthesis of L4 on L5, unchanged. No evidence of instability on flexion/extension images. Mildly exaggerated lumbar lordosis. Diffuse spondylosis, mildly progressed. Reading Location[facility]
== END | disposition home or self-care (01) ==
LOC: RAD 11:51
PROVIDERS: PCP Family Medicine Geriatric Medicine; Referring Provider Family Medicine Geriatric Medicine; Visit Provider Family Medicine Geriatric Medicine
DX: M54.50 Low back pain, unspecified (principal); M25.551 Pain in right hip
CPT/HCPCS: 72110; 73502

== ENCOUNTER → 2025-11-18 | Outpatient (CLI) | payer OTHER, SELFPAY | END | disposition home or self-care (01) | LOC: POLAB3 13:50 | PROVIDERS: PCP Family Medicine Geriatric Medicine; Visit Provider Family Medicine Geriatric Medicine | DX: R06.2 Wheezing (principal) | CPT/HCPCS: 87631 ==